=== PATIENT | female | born 1940 | race Caucasian/White ===

== ENCOUNTER 2020-07-26 09:52 | Outpatient (CLI) | payer MEDICARE, OTHER | END 2020-07-26 09:53 | disposition home or self-care (01) | LOC: CSHWCC 09:52 | PROVIDERS: ATTEND Nurse Practitioner Family | DX: S51.002D Unspecified open wound of left elbow, subsequent encounter (principal); E78.2 Mixed hyperlipidemia; I10 Essential (primary) hypertension; I48.20 Chronic atrial fibrillation, unspecified; W01.198D Fall on same level from slipping, tripping and stumbling with subsequent striking against other object, subsequent encounter | CPT/HCPCS: 97139; G0463; 99212 ==

== ENCOUNTER 2021-12-27 08:30 | Observation (INO) | payer MEDICARE ==
[2021-12-27] MEDS ORDERED: Aspirin Chewable 81 MG TAB ONE (08:50)
[2021-12-27 09:17] LABS: #Eosinphils 0.1 10x3/uL (0.0-0.5); #Monocytes 0.5 10x3/uL (0.0-1.1); #Neutrophils 3.8 10x3/uL (1.5-8.4); %Basophils 0.5 % (0.0-2.0); %Eosinophils 0.9 % (0.0-6.0); %Lymphocytes 23.2 % (18.0-47.0); %Monocytes 8.4 % (0.0-10.0); %Neutrophils 66.8 % (40.0-75.0); Hemoglobin 14.6 g/dL (12.0-15.5); Mean Corpuscular HGB CONC 35.1 g/dL (32.0-36.0); Mean Corpuscular Hemoglobin 32.1 pg (27.0-33.0); Mean Corpuscular Volume 91.4 fl (81.6-98.3); Mean Platelet Volume 9.8 fl (7.4-10.4); Platelet Count 287 10x3/uL (150-450); RBC Distribution Width 12.9 % (11.5-14.5); Red Blood Cell (RBC) Count 4.55 10x6/uL (3.90-5.03); White Blood Cell (WBC) Count 5.6 10x3/uL (3.5-10.5)
[2021-12-27 09:28] LABS: ALT (SGPT) 11 U/L (8-55); AST (SGOT) 14 U/L (5-34); Albumin 4.1 g/dL (3.4-4.8); Alkaline Phosphatase 73 U/L (40-110); Anion Gap 14 mmol/L (10-20); BUN (Urea Nitrogen) 21 mg/dL (9.8-20.1); Bilirubin, Total 0.6 mg/dL (0.2-1.2); CK (CPK) 53 U/L (29-168); Calc. Creatinine Clearance 0 mL/min (70-130); Calcium 10.2 mg/dL (7.8-10.44); Carbon Dioxide 24 mmol/L (23-31); Chloride 104 mmol/L (98-107); Estimated GFR 53; Globulin 2.6 g/dL (2.4-3.5); Glucose 124 mg/dL (83-110); Lipase 33 U/L (8-78); Potassium 3.5 mmol/L (3.5-5.1); Protein, Total 6.7 g/dL (5.8-8.1); Sodium 138 mmol/L (136-145)
[2021-12-27] MEDS ORDERED: Morphine 4 MG/ML VIAL ONE (09:38)
[2021-12-27] MEDS ORDERED: Nitroglycerin 0.4 MG TAB 1 EACH ONE (09:38)
[2021-12-27] MEDS ORDERED: Nitroglycerin 2% Ointment 1 INCH/1 GM Packet ONE (09:39)
[2021-12-27 09:50] LABS: CKMB 1.1 ng/mL (0-6.6)
[2021-12-27] MEDS ORDERED: Nitroglycerin 0.4 MG TAB (25 Tab Bottle) SL PRN (10:56)
[2021-12-27 12:13] LABS: Troponin I 0.042 ng/mL (< 0.028)
[2021-12-27 15:22] LABS: Troponin I 0.036 ng/mL (< 0.028)
[2021-12-27 16:53] LABS: SARS-CoV-2 NAA Rapid Test Not Detected (NotDetected)
[2021-12-27] MEDS ORDERED: Atorvastatin Calcium 20 MG TAB PO SCH (21:00)
[2021-12-27] MEDS ORDERED: Acetaminophen 325 MG TAB PO PRN (23:39)
[2021-12-28] MEDS: Acetaminophen 325 MG TAB PO PRN ×2 (00:06→07:10)
[2021-12-28 06:00] LABS: Anion Gap 11 mmol/L (10-20); BUN (Urea Nitrogen) 20 mg/dL (9.8-20.1); Calc. Creatinine Clearance 0 mL/min (70-130); Calcium 9.7 mg/dL (7.8-10.44); Carbon Dioxide 26 mmol/L (23-31); Chloride 106 mmol/L (98-107); Estimated GFR 67; Glucose 87 mg/dL (83-110); Potassium 3.6 mmol/L (3.5-5.1); Sodium 139 mmol/L (136-145)
[2021-12-28 06:14] LABS: #Eosinphils 0.2 10x3/uL (0.0-0.5); #Monocytes 0.6 10x3/uL (0.0-1.1); #Neutrophils 5.4 10x3/uL (1.5-8.4); %Basophils 0.4 % (0.0-2.0); %Lymphocytes 22.2 % (18.0-47.0); %Monocytes 7.7 % (0.0-10.0); %Neutrophils 67.4 % (40.0-75.0); Hemoglobin 13.6 g/dL (12.0-15.5); Mean Corpuscular HGB CONC 34.2 g/dL (32.0-36.0); Mean Corpuscular Hemoglobin 31.6 pg (27.0-33.0); Mean Corpuscular Volume 92.3 fl (81.6-98.3); Mean Platelet Volume 9.9 fl (7.4-10.4); Platelet Count 271 10x3/uL (150-450); Red Blood Cell (RBC) Count 4.31 10x6/uL (3.90-5.03); White Blood Cell (WBC) Count 7.9 10x3/uL (3.5-10.5)
[2021-12-28] MEDS ORDERED: Aspirin Chewable 81 MG TAB PO SCH (09:00)
[2021-12-28] MEDS ORDERED: Apixaban 5 MG TAB PO SCH (09:00)
[2021-12-28 11:57] VITALS: BP 158/71; TEMP 96.8
[2021-12-28] MEDS ORDERED: Atorvastatin Calcium 40 MG TAB PO SCH (21:00)
[2021-12-28] MEDS ORDERED: Enoxaparin Sodium 80 MG/0.8 ML SYRINGE SC SCH (21:00)
== END 2021-12-28 15:33 | disposition home or self-care (01) ==
LOC: CSHERS 08:30 → CSHERHOLD 10:34 → INTOOBSV 10:34 → OBSVTOIN 10:34 → CSHTELE 21:01
PROVIDERS: ADMIT Internal Medicine; ATTEND Internal Medicine
DX: R07.2 Precordial pain (principal); I10 Essential (primary) hypertension; E78.5 Hyperlipidemia, unspecified; I48.0 Paroxysmal atrial fibrillation; I21.4 Non-ST elevation (NSTEMI) myocardial infarction; H81.10 Benign paroxysmal vertigo, unspecified ear; Z79.01 Long term (current) use of anticoagulants; Z79.899 Other long term (current) drug therapy; Z79.82 Long term (current) use of aspirin; Z88.8 Allergy status to other drugs, medicaments and biological substances; Z87.891 Personal history of nicotine dependence; Z20.822 Contact with and (suspected) exposure to COVID-19; Z98.51 Tubal ligation status; Z98.890 Other specified postprocedural states
CPT/HCPCS: 71045; 71275; 74174; 80048; 82550; 82553; 83690; 83735; 84484 ×2; 85025; 93005 ×2; 93306; 96374; 99285; G0378 ×3; U0002; 36415; 80053; 84443; 93010; J2270

== ENCOUNTER 2025-01-20 09:44 | Outpatient (CLI) | payer MEDICARE ==
[2025-01-20 11:20] LABS: ALT (SGPT) 14 U/L (Less than 34); AST (SGOT) 15 U/L (11-34); Albumin 3.8 g/dL (3.1-4.5); Alkaline Phosphatase 100 U/L (40-110); Anion Gap 11 mmol/L (10-20); BUN (Urea Nitrogen) 24 mg/dL (9.8-20.1); Bilirubin, Direct 0.3 mg/dL (0.1-0.3); Bilirubin, Total 0.7 mg/dL (0.3-1.2); Calc. Creatinine Clearance 0 mL/min (70-130); Calcium 9.6 mg/dL (7.8-10.44); Carbon Dioxide 27 mmol/L (23-31); Chloride 105 mmol/L (98-107); Glucose 88 mg/dL (83-110); Potassium 4.2 mmol/L (3.5-5.1); Sodium 139 mmol/L (136-145)
[2025-01-20 11:21] LABS: #Basophils 0.03 10x3/uL (0.0-0.2); #Eosinophils 0.17 10x3/uL (0.0-0.5); #Monocytes 0.51 10x3/uL (0.0-1.1); #Neutrophils 6.52 10x3/uL (1.5-8.4); %Basophils 0.3 % (0.0-2.0); %Eosinophils 1.9 % (0.0-6.0); %Lymphocytes 20.6 % (18.0-47.0); %Monocytes 5.6 % (0.0-10.0); %Neutrophils 71.3 % (40.0-75.0); Hematocrit 36.4 % (34.9-44.5); Hemoglobin 12.6 g/dL (12.0-15.5); Mean Corpuscular Hemoglobin 43.4 pg (27.0-33.0); Mean Corpuscular Volume 125.5 fL (81.6-98.3); Platelet Count 310 10x3/uL (150-450); Red Blood Cell (RBC) Count 2.90 10x6/uL (3.90-5.03); White Blood Cell (WBC) Count 9.14 10x3/uL (3.5-10.5)
== END 2025-01-20 09:45 | disposition home or self-care (01) ==
LOC: CSHLAB 09:44
PROVIDERS: ATTEND Surgery
DX: Z01.818 Encounter for other preprocedural examination (principal); K81.1 Chronic cholecystitis; R94.31 Abnormal electrocardiogram [ECG] [EKG]
CPT/HCPCS: 80048; 80076; 85025; 93005; 93010

== ENCOUNTER 2025-02-01 10:26 | Emergency (ER) | payer MEDICARE ==
[2025-02-01 11:23] LABS: AST (SGOT) 16 U/L (11-34); Albumin 3.7 g/dL (3.1-4.5); Alkaline Phosphatase 88 U/L (40-110); Anion Gap 14 mmol/L (10-20); BUN (Urea Nitrogen) 27 mg/dL (9.8-20.1); Bilirubin, Total 1.2 mg/dL (0.3-1.2); CK (CPK) 38 U/L (29-168); Calc. Creatinine Clearance 0 mL/min (70-130); Calcium 10.2 mg/dL (7.8-10.44); Carbon Dioxide 23 mmol/L (23-31); Chloride 105 mmol/L (98-107); Globulin 3.5 g/dL (2.4-3.5); Glucose 102 mg/dL (83-110); Potassium 3.9 mmol/L (3.5-5.1); Sodium 138 mmol/L (136-145)
[2025-02-01 11:25] LABS: Troponin I 0.030 ng/mL (< 0.028)
[2025-02-01 11:29] LABS: Glucose, Urine (Dipstick) Normal (Negative); Leukocyte 500 (Negative); Protein, Urine (Dipstick) 30 mg/dl (Neg-Trace); Specific Gravity, Urine 1.025 (1.005-1.030)
[2025-02-01 11:35] LABS: #Basophils Less than 0.03 10x3/uL (0.0-0.2); #Eosinophils 0.10 10x3/uL (0.0-0.5); #Monocytes 0.50 10x3/uL (0.0-1.1); #Neutrophils 5.99 10x3/uL (1.5-8.4); %Basophils 0.1 % (0.0-2.0); %Eosinophils 1.3 % (0.0-6.0); %Lymphocytes 17.0 % (18.0-47.0); %Monocytes 6.3 % (0.0-10.0); %Neutrophils 75.0 % (40.0-75.0); Hematocrit 38.1 % (34.9-44.5); Hemoglobin 13.5 g/dL (12.0-15.5); Mean Corpuscular Hemoglobin 43.1 pg (27.0-33.0); Mean Corpuscular Volume 121.7 fL (81.6-98.3); Platelet Count 257 10x3/uL (150-450); Red Blood Cell (RBC) Count 3.13 10x6/uL (3.90-5.03); White Blood Cell (WBC) Count 7.98 10x3/uL (3.5-10.5)
[2025-02-01 11:51] LABS: Bacteria/HPF 4+ HPF (None Seen); CAUTI Indications for Culture Alt mental st,lethar
[2025-02-01 11:54] LABS: Urine Culture Reflex Yes Yes
[2025-02-01 12:17] LABS: Macrocytosis SLIGHT = 6-15 cells (100X) (0-5/hpf); Ovalocytes SLIGHT = 2-5 cells (100X) (0-1/hpf); Platelet Adequacy Comment Appears Adequate
[2025-02-01 12:30] LABS: ALT (SGPT) Less than 20 U/L (Less than 34)
[2025-02-01] MEDS ORDERED: cefTRIAXone (ROCEPHIN) 1 GM VIAL ONE (12:33)
== END 2025-02-01 13:51 | disposition home or self-care (01) ==
LOC: CSHERS 10:26
DX: R53.1 Weakness (principal); N39.0 Urinary tract infection, site not specified; I48.91 Unspecified atrial fibrillation; I10 Essential (primary) hypertension; E78.5 Hyperlipidemia, unspecified; Z79.899 Other long term (current) drug therapy; Z79.01 Long term (current) use of anticoagulants
CPT/HCPCS: 71045; 71275; 81001; 82550; 83605; 83880; 84484; 85379; 87040; 87086; 87426; 93005; J0696; 36415; 80053; 84443; 85025; 96365